=== PATIENT | male | born 1995 | race Hispanic/Latino ===

== ENCOUNTER 2020-12-29 17:26 | Emergency (ER) | payer SELFPAY ==
[~2020-12-29] VITALS: Ht 172.7 cm; Wt 65.8 kg
[2020-12-29 22:51] VITALS: BP 114/65
== END 2020-12-29 22:52 | disposition home or self-care (01) ==
LOC: ER 18:00
DX: N50.811 Right testicular pain (principal); I86.1 Scrotal varices; W51.XXXA Accidental striking against or bumped into by another person, initial encounter; Y92.008 Other place in unspecified non-institutional (private) residence as the place of occurrence of the external cause
CPT/HCPCS: 76870; 93976; 99283